=== PATIENT | male | born 1995 | race Caucasian/White ===

== ENCOUNTER 2018-12-27 19:42 | Emergency (ER) | payer BC ==
--- NOTE | 2018-12-27 20:22 | ED Physician Chart ---
ED Chief Complaint/HPI - Patient Information Date Seen:: 12/27/18 Time Seen:: 20:17 Chief Complaint:: rt leg edema History of Present Illness:: 23 yr old male with hx of dvt on aspirin and xarelto who had surgery for compartment syndrome here for us us not available till midnight pt left to get us at another facility ED Review of Systems - Review of Systems General/Constitutional: No fever Skin: Other (has open wounds for compartment syndrome) Head: No headache Eyes: No loss of vision ENT: No earache Neck: No neck pain Cardio Vascular: No chest pain Pulmonary: No SOB GI: No nausea, No vomiting Endocrine: No polyuria Psychiatric: No depression Hematopoietic: No bruising Allergic/Immuno: No urticaria Neurological: Syncope, No syncope ED Past Medical History - Past Medical History Past Medical History: Other ED Physical Exam - Physical Examination General/Constitutional: Awake, Well-developed, well-nourished Other Extremities comments:: edema rt leg ED Assessment - Assessment General Assessment: leg edema hx of dvt and compartment syndrome release surgery ED Septic Shock - . Is Septic Shock (SBP<90, OR Lactate>4 mmol\L) present?: No ED Reassessment (Disposition) - Reassessment Reassessment:: leg edemae hx of compartment syndrome and dvt on xarelto aspirin - Diagnosis Diagnosis:: as above - Patient Disposition Condition at Disposition:: Stable
== END 2018-12-27 20:15 | disposition left against medical advice (07) ==
LOC: ER 19:42
DX: R60.0 Localized edema (principal); R55 Syncope and collapse; Z86.718 Personal history of other venous thrombosis and embolism
CPT/HCPCS: Z7502